=== PATIENT | male | born 1990 | race Caucasian/White ===

== ENCOUNTER 2018-06-07 10:02 | Emergency (ER) | payer BC ==
[2018-06-07 12:22] VITALS: BP 140/94
--- NOTE | 2018-06-07 12:42 | UC ---
Back Pain HPI - HPI Summary HPI Summary: 27 yo male was doing squats yesterday onset of right buttock pain with some pain radiating down right leg to foot no bowel or bladder dysfunction - History of Current Complaint Chief Complaint: UCBackPain Stated Complaint: LOWER BACK/RT HIP PAIN Time Seen by Provider: 06/07/18 12:32 Hx Obtained From: Patient Onset/Duration: Sudden Onset, Lasting Hours Timing: Constant Severity Initially: Moderate Severity Currently: Moderate Pain Intensity: 7 Pain Scale Used: 0-10 Numeric Back Pain: Is Discrete @ - right buttock, Radiates To - right foot Character: Aching, Spasmodic Aggravating Factor(s): Movement, Bending, Walking Alleviating Factor(s): Rest, OTC Meds Associated Signs And Symptoms: Negative: Swelling, Redness, Bruising, Fever, Weakness, Numbness, Tingling, Abdominal Pain, Flank Pain, Bladder Incontinence, Bowel Incontinence, Weight Loss, Pain with Weight Bearing Full Body (No Head): 1 - pain here 2 - radiates here - Allergies/Home Medications Allergies/Adverse Reactions: Allergies Allergy/AdvReac Type Severity Reaction Status Date / Time bee venom protein (honey bee) Allergy Swelling Verified 06/07/18 12:22 environmental Allergy Congestion Uncoded 06/07/18 12:22 Home Medications: Home Medications Ibuprofen 750 mg PO ONCE PRN 06/07/18 [History Confirmed 06/07/18] PMH/Surg Hx/FS Hx/Imm Hx Previously Healthy: Yes - Surgical History Surgical History: None - Family History Known Family History: Positive: Non-Contributory - Social History Alcohol Use: Occasionally Substance Use Type: None Smoking Status (MU): Never Smoked Tobacco Review of Systems All Other Systems Reviewed And Are Negative: Yes Constitutional: Positive: Negative Skin: Positive: Negative Eyes: Positive: Negative ENT: Positive: Negative Respiratory: Positive: Negative Cardiovascular: Positive: Negative Gastrointestinal: Positive: Negative Genitourinary: Positive: Negative Motor: Positive: Negative Neurovascular: Positive: Negative Musculoskeletal: Positive: Negative, Myalgia - right buttock Neurological: Positive: Negative Psychological: Positive: Negative Physical Exam Triage Information Reviewed: Yes Appearance: Well-Appearing, No Pain Distress, Well-Nourished Vital Signs: Initial Vital Signs Temp 98.1 F 06/07/18 12:18 Pulse 64 06/07/18 12:18 Resp 18 06/07/18 12:18 BP 140/94 06/07/18 12:18 Pulse Ox 100 06/07/18 12:18 Vital Signs Reviewed: Yes Eyes: Positive: Conjunctiva Clear ENT: Positive: Hearing grossly normal. Negative: Nasal congestion, Nasal drainage, Trismus, Muffled voice, Hoarse voice Neck: Positive: Supple, Nontender, No Lymphadenopathy Respiratory: Positive: Lungs clear, Normal breath sounds, No respiratory distress, No accessory muscle use Cardiovascular: Positive: RRR, No Murmur Musculoskeletal: Positive: ROM Intact, No Edema, Other: - back ROM decreased flexion, good twisting Neurological: Positive: Alert Psychological Exam: Normal Skin Exam: Normal Back Pain Course/Dx - Differential Dx/Diagnosis Provider Diagnosis: Piriformis syndrome of right side Discharge - Sign-Out/Discharge Documenting (check all that apply): Patient Departure All imaging exams completed and their final reports reviewed: No Studies - Discharge Plan Condition: Stable Disposition: HOME Prescriptions: Cyclobenzaprine (NF) [Cyclobenzaprine 5 MG (NF)] 5 mg PO TID PRN #21 tab PRN Reason: Spasms - Muscle Patient Education Materials: Piriformis Syndrome (ED) Referrals: Mathew French MD [Primary Care Provider] - 1 Week (recheck in 1-2 weeks BP a little high today...should be rechecked) Additional Instructions: ibuprofen 200mg (OTC) 2-3 pills upto 4x day with food for pain don't take muscle relaxant and drive or work BP here 140/94 I suspect piraformis syndrome recheck if not improving - Billing Disposition and Condition Condition: STABLE Disposition: Home
== END 2018-06-07 12:52 | disposition home or self-care (01) ==
LOC: UCCORT 10:02
DX: G57.01 Lesion of sciatic nerve, right lower limb (principal); Z91.09 Other allergy status, other than to drugs and biological substances; Z91.030 Bee allergy status
CPT/HCPCS: 99212; G0463

== ENCOUNTER 2019-05-28 07:04 | Emergency (ER) | payer BC ==
[2019-05-28 07:21] VITALS: BP 145/81
--- NOTE | 2019-05-28 07:45 | UC ---
Back Pain HPI - HPI Summary HPI Summary: PATIENT REPORTS A HISTORY OF CHRONIC LOW BACK PAIN AND RIGHT FOOT NUMBNESS SINCE AN INJURY ABOUT A YEAR AGO. STATES THAT 3 DAYS AGO HE WOKE UP WITH WORSENING LOW BACK PAIN THAT IS RADIATING AROUND TO HIS BOTH HIS HIPS AND GROIN. IS COMPLAINING OF PAIN/TINGLING IN HIS TESTICLES. RIGHT FOOT NUMBNESS IS WORSE THAN NORMAL. DENIES ANY ACUTE TRAUMA BUT DOES WORK OUT REGULARLY. - History of Current Complaint Chief Complaint: UCBackPain Stated Complaint: LOWER BACK PAIN Time Seen by Provider: 05/28/19 07:16 Hx Obtained From: Patient Onset/Duration: Sudden Onset, Lasting Days, Still Present Timing: Constant Severity Initially: Moderate Severity Currently: Moderate Pain Intensity: 7 Pain Scale Used: 0-10 Numeric Character: Sharp Aggravating Factor(s): Movement, Bending Alleviating Factor(s): Nothing Associated Signs And Symptoms: Positive: Numbness, Tingling. Negative: Swelling , Weakness, Bladder Incontinence, Bowel Incontinence - Allergies/Home Medications Allergies/Adverse Reactions: Allergies Allergy/AdvReac Type Severity Reaction Status Date / Time bee venom protein (honey bee) Allergy Swelling Verified 05/28/19 07:18 environmental Allergy Congestion Uncoded 05/28/19 07:18 Home Medications: Home Medications Ibuprofen 800 mg PO ONCE PRN 06/07/18 [History Confirmed 05/28/19] PMH/Surg Hx/FS Hx/Imm Hx Previously Healthy: Yes - Surgical History Surgical History: None - Family History Known Family History: Positive: Non-Contributory - Social History Alcohol Use: Rare Substance Use Type: None Smoking Status (MU): Never Smoked Tobacco Review of Systems All Other Systems Reviewed And Are Negative: Yes Constitutional: Positive: Negative Skin: Positive: Negative Respiratory: Positive: Negative Cardiovascular: Positive: Negative Gastrointestinal: Positive: Negative Musculoskeletal: Positive: Arthralgia, Decreased ROM, Myalgia Neurological/Mental Status: Positive: Paresthesia, Numbness Physical Exam Triage Information Reviewed: Yes Appearance: Well-Appearing, No Pain Distress, Well-Nourished Vital Signs: Initial Vital Signs Temp 97.8 F 05/28/19 07:18 Pulse 62 05/28/19 07:18 Resp 14 05/28/19 07:18 BP 145/81 05/28/19 07:18 Pulse Ox 98 05/28/19 07:18 Vital Signs Reviewed: Yes Eyes: Positive: Conjunctiva Clear ENT: Positive: Hearing grossly normal Neck: Positive: Supple Respiratory: Positive: No respiratory distress, No accessory muscle use Cardiovascular: Positive: Pulses Normal Musculoskeletal: Positive: No Edema, ROM Limited @ - BACK Neurological: Positive: Alert Psychological: Positive: Age Appropriate Behavior Skin: Negative: Rashes Back Pain Course/Dx - Course Course Of Treatment: PATIENT ARRIVES COMPLAINING OF ACUTE EXACERBATION OF HIS CHRONIC LOW BACK PAIN INCLUDING PAIN/TINGLING IN HIS GENITAL AREA AND WORSENING RIGHT FOOT NUMBNESS. CONCERN FOR MORE EMERGENT CONDITION REQUIRING A HIGHER LEVEL OF SERVICE THAN WHAT IS AVAILABLE IN THE URGENT CARE. PATIENT TO GO TO THE ER BY PRIVATE CAR. - Differential Dx/Diagnosis Provider Diagnosis: Acute exacerbation of chronic low back pain Discharge ED - Sign-Out/Discharge Documenting (check all that apply): Patient Departure All imaging exams completed and their final reports reviewed: No Studies - Discharge Plan Condition: Stable Disposition: HOME Patient Education Materials: Back Pain (ED) Referrals: Mathew French MD [Primary Care Provider] - Additional Instructions: I AM CONCERNED ABOUT YOUR PROGRESSIVE BACK PAIN WITH GENITAL INVOLVEMENT. GO DIRECTLY TO THE [facility] [place] [facility] FROM HERE FOR FURTHER EVALUATION. - Billing Disposition and Condition Condition: STABLE Disposition: Home
== END 2019-05-28 07:41 | disposition home or self-care (01) ==
LOC: UCCORT 07:04
DX: M54.5 Low back pain (principal); N50.812 Left testicular pain; N50.811 Right testicular pain; Z91.030 Bee allergy status
CPT/HCPCS: 99212; G0463